=== PATIENT | male | born 1955 | race African-American/Black ===

== ENCOUNTER 2021-03-12 12:23 | Inpatient (IN) | payer OTHER, BC ==
--- NOTE | 2021-03-12 13:47 | RAD REPORT ---
EXAM DESCRIPTION: RAD - Chest Single View - 03/12/2021 1:29 pm CLINICAL HISTORY: CHEST PAIN Chest pain. COMPARISON: No comparisons FINDINGS: Portable technique limits examination quality. Small calcified granuloma seen in the right lung base. The lungs are otherwise clear. The heart is no rmal in size. No displaced fractures. IMPRESSION: No acute intrathoracic process suspected.
[2021-03-12] MEDS ORDERED: MORPHINE 4 MG/ML SYR ONE ×2 (14:58→20:30)
[2021-03-12] MEDS ORDERED: ONDANSETRON 4 MG/2 ML VIAL ONE ×2 (14:58→20:30)
[2021-03-12 15:40] LABS: Absolute Lymphocytes (CBC) 1.2 K/uL (0.7-4.9); Basophils % 0.6 % (0-1.3); Hematocrit 40.5 % (39.6-49.0); Lymphocytes % 10.7 % (15.3-44.8); MPV 8.2 fL (7.6-11.3); RBC Red Blood Cell Count 4.29 M/uL (4.33-5.43)
[2021-03-12 16:10] LABS: Albumin 4.3 g/dL (3.4-5.0); Bilirubin Direct 0.2 mg/dL (0-0.2); Bilirubin Total 0.7 mg/dL (0.2-1.0); Protein, Total 7.8 g/dL (6.4-8.2)
[2021-03-12 16:12] LABS: Troponin (Emerg Dept Use Only) 21.1 ng/mL (0.0-0.045)
--- NOTE | 2021-03-12 16:35 | ER ---
Nurse's Notes [facility] Name: Kam Shah Age: 65 yrs Sex: Male : 1955 Arrival Date: 03/12/2021 Time: 12:28 Bed 16 Private MD: Diagnosis: Non-ST elevation (NSTEMI) myocardial infarction Presentation: 03/12 12:28 Chief complaint: Patient states: Pain that began from L flank that radiates to L axilla ss and across chest that began yesterday. IS described as sharp, continuous. Coronavirus screen: Client denies travel out of the [place] in the last 14 days. Ebola Screen: Patient denies exposure to infectious person. Patient denies travel to an Ebola-affected area in the 21 days before illness onset. Initial Sepsis Screen: Does the patient meet any 2 criteria? No. Patient's initial sepsis screen is negative. Does the patient have a suspected source of infection? No. Patient's initial sepsis screen is negative. Risk Assessment: Do you want to hurt yourself or someone else? Patient reports no desire to harm self or others. Onset of symptoms was March 11, 2021. 12:28 Acuity: JORDYN 2 ss 12:28 Method Of Arrival: Ambulatory ss Historical: - Allergies: 12:41 No Known Allergies; ss - PMHx: 12:41 High Cholesterol; ss - PSHx: 12:41 Appendectomy; R knee; ss - Immunization history:: Adult Immunizations up to date. - Social history:: Smoking status: Patient denies any tobacco usage or history of. - Family history:: not pertinent. - Hospitalizations: : No recent hospitalization is reported. Screenin:00 Abuse screen: Denies threats or abuse. Nutritional screening: No deficits noted. vg1 Tuberculosis screening: No symptoms or risk factors identified. Fall Risk No fall in past 12 months (0 pts). No secondary diagnosis (0 pts). IV access (20 points). Ambulatory Aid- None/Bed Rest/Nurse Assist (0 pts). Gait- Normal/Bed Rest/Wheelchair (0 pts) Mental Status- Oriented to own ability (0 pts). Total [place] Fall Scale indicates No Risk (0-24 pts). Assessment: 12:45 General: Appears in no apparent distress. comfortable, Behavior is calm, cooperative. vg1 Pain: Complains of pain in anterior aspect of left upper chest and left axillary Pt states radiates from left axillary to left side of chest Pain currently is 10 out of 10 on a pain scale. Pain began last night. Neuro: Level of Consciousness is awake, alert, obeys commands, Oriented to person, place, time, situation. Cardiovascular: Patient's skin is warm and dry. Respiratory: Airway is patent Respiratory effort is even, unlabored, Breath sounds are clear bilaterally. Denies cough, shortness of breath. GI: Reports nausea. : No signs and/or symptoms were reported regarding the genitourinary system. EENT: No signs and/or symptoms were reported regarding the EENT system. Derm: Skin is intact, is healthy with good turgor. Musculoskeletal: Circulation, motion, and sensation intact. 14:10 Reassessment: Lab called to assist with blood draw. vg1 14:32 Reassessment: Patient appears in no apparent distress at this time. No changes from vg1 previously documented assessment. Patient and/or family updated on plan of care and expected duration. Pain level reassessed. Patient is alert, oriented x 3, equal unlabored respirations, skin warm/dry/pink. Patient rated pain 10/10, notified provider. 14:42 Reassessment: Received VO from SANCHO Lombardi to administer Morphine 4 mg IVP x1 and Zofran vg1 4mg IVP x1. 15:00 Reassessment: Patient appears in no apparent distress at this time. Patient and/or vg1 family updated on plan of care and expected duration. Pain level reassessed. Patient is alert, oriented x 3, equal unlabored respirations, skin warm/dry/pink. 16:14 Reassessment: Received VO from Dr Espinoza to administer aspirin 324 mg PO x1. vg1 18:10 Reassessment: Patient appears in no apparent distress at this time. No changes from vg1 previously documented assessment. Patient and/or family updated on plan of care and expected duration. Pain level reassessed. Patient is alert, oriented x 3, equal unlabored respirations, skin warm/dry/pink. Vital Signs: 12:28 BP 137 / 94; Pulse 92; Resp 16; Temp 97.2(TE); Pulse Ox 97% on R/A; Weight 85.28 kg; ss Height 5 ft. 10 in. (177.80 cm); Pain 10/10; 13:01 BP 153 / 96; Pulse 72; Resp 20; Pulse Ox 99% on R/A; vg1 14:32 BP 149 / 98; Pulse 66; Resp 16; Pulse Ox 100% ; vg1 15:30 BP 135 / 87; Pulse 69; Resp 16; Pulse Ox 100% on R/A; vg1 16:00 BP 147 / 94; Pulse 66; Resp 16; Pulse Ox 98% on R/A; vg1 16:24 Weight 82.9 kg; vg1 16:30 BP 144 / 94; Pulse 72; Resp 16; Pulse Ox 99% on R/A; vg1 17:30 BP 156 / 97; Pulse 75; Resp 16; Pulse Ox 99% on R/A; vg1 18:10 BP 139 / 98; Pulse 70; Resp 14; Pulse Ox 98% on R/A; vg1 16:24 Body Mass Index 26.22 (82.90 kg, 177.80 cm) vg1 ED Course: 12:28 Patient arrived in ED. ss 12:41 Triage completed. ss 12:41 Arm band placed on right wrist. ss 12:43 Jimenez Espinoza MD is Attending Physician. rn 12:45 Lexii Anders RN is Primary Nurse. vg1 13:01 Patient has correct armband on for positive identification. Bed in low position. Call vg1 light in reach. Side rails up X 1. Adult w/ patient. 13:01 surveillance monitor on. Pulse ox on. NIBP on. vg1 13:01 Patient maintains SpO2 saturation greater than 95% on room air. vg1 13:19 Missed attempt(s): 22 gauge in left antecubital area. vg1 13:29 XRAY Chest (1 view) In Process Unspecified. EDMS 14:10 Inserted saline lock: 22 gauge in right wrist, using aseptic technique. Blood collected.ss 15:25 Initial lab(s) drawn, by tx, sent to lab. Inserted saline lock: 22 gauge in left vg1 antecubital area, using aseptic technique. ,using aseptic technique. completed by Dr Espinoza via . 16:34 Carmine Mccoy MD is Hospitalizing Provider. rn 19:26 Primary Nurse role handed off by Lexii Anders RN [email or web address] 19:40 Lexii Anders RN is Primary Nurse. vg1 20:52 No provider procedures requiring assistance completed. Patient admitted, IV remains in vg1 place. Administered Medications: 14:50 Drug: Zofran (Ondansetron) 4 mg Route: IVP; Site: right wrist; vg1 16:16 Follow up: Response: No adverse reaction; Nausea is decreased vg1 14:51 Drug: morphine 4 mg Route: IVP; Site: right wrist; vg1 16:16 Follow up: Response: No adverse reaction; Pain is decreased vg1 16:47 Drug: Heparin (IA-Bolus No thrombolytic) - HEParin 60 units/kg {Co-Signature: tr6 vg1 (Nohemi Gonsalves RN).} Route: IVP; Site: left antecubital; 18:07 Follow up: Response: No adverse reaction vg1 16:48 Drug: Heparin ([place] Drip) 12 units/kg/hr - (HEParin 59242 units, D5W 500 ml) vg1 {Co-Signature: tr6 (Nohemi Gonsalves RN).} Route: IV; Rate: calculated rate; Site: left antecubital; 20:56 Follow up: IV Status: Infusion continued upon admission vg1 16:48 Drug: Aspirin Chewable Tablet 324 mg Route: PO; vg1 18:07 Follow up: Response: No adverse reaction vg1 16:48 Drug: Metoprolol TARTRATE 50 mg Route: PO; vg1 17:30 Follow up: BP 156 / 97; Pulse 75 bpm; Resp 16 bpm; Pulse Ox 99% RA vg1 17:23 Drug: Atorvastatin 40 mg Route: PO; vg1 18:08 Follow up: Response: No adverse reaction vg1 18:20 Drug: Nitro-Bid Ointment 2 % 1 inches Route: Transdermal; Site: anterior chest wall; vg1 20:56 Follow up: Response: No adverse reaction vg1 Outcome: 16:34 Decision to Hospitalize by Provider. rn 20:52 Admitted to ICU accompanied by nurse, via wheelchair, with chart, Report called to 1 KATHRYN Sparrow 20:52 Condition: stable 20:52 Instructed on the need for admit. 20:56 Patient left the ED. vg1 Signatures: Dispatcher [employer] EDJimenez Whalen MD MD rn Smirch, Shelby, RN RN Ashu Toro [facility] Lexii Anders RN RN [facility] Nohemi Gonsalves RN tr6 Corrections: (The following items were deleted from the chart) 14:43 14:32 Reassessment: Patient appears in no apparent distress at this time. No changes vg1 from previously documented assessment. Patient and/or family updated on plan of care and expected duration. Pain level reassessed. Patient is alert, oriented x 3, equal unlabored respirations, skin warm/dry/pink. vg1
--- NOTE | 2021-03-12 16:35 | EDPHYS ---
Physician Documentation [facility] Name: Kam Shah Age: 65 yrs Sex: Male : 1955 Arrival Date: 03/12/2021 Time: 12:28 Bed 16 Private MD: ED Physician Jimenez Espinoza HPI: 03/12 13:24 This 65 yrs old Black Male presents to ER via Ambulatory with complaints of Chest Pain rn > 30 y/o. 13:24 The patient or guardian reports chest pain that is located primarily in the left rn lateral anterior chest. Onset: last night. The pain does not radiate. Associated signs and symptoms: Pertinent positives: nausea, Pertinent negatives: abdominal pain, cough, diaphoresis, lower extremity pain, lower extremity swelling, lightheadedness, shortness of breath, syncope, vomiting. The chest pain is described as aching. Duration: The patient or guardian reports a single episode, that is still ongoing. Modifying factors: The symptoms are alleviated by nothing. the symptoms are aggravated by nothing. Severity of pain: At its worst the pain was moderate in the emergency department the pain has improved. The patient has not experienced similar symptoms in the past. The patient has not recently seen a physician. Reports left sided chest pain that began last night, no trauma, no fever/cough, + nausea, no diaphoresis. No radiation. Unable to sleep well last night, tossed and turned. Not better today. . Historical: - Allergies: 12:41 No Known Allergies; ss - PMHx: 12:41 High Cholesterol; ss - PSHx: 12:41 Appendectomy; R knee; ss - Immunization history:: Adult Immunizations up to date. - Social history:: Smoking status: Patient denies any tobacco usage or history of. - Family history:: not pertinent. - Hospitalizations: : No recent hospitalization is reported. ROS: 13:24 Constitutional: Negative for fever, chills, and weight loss, Eyes: Negative for injury, rn pain, redness, and discharge, Neck: Negative for injury, pain, and swelling, Cardiovascular: Negative for palpitations, and edema, Respiratory: Negative for cough, wheezing, and pleuritic chest pain, Abdomen/GI: Negative for abdominal pain, nausea, vomiting, diarrhea, and constipation, Back: Negative for injury and pain, : Negative for injury, bleeding, discharge, and swelling, MS/Extremity: Negative for injury and deformity, Skin: Negative for injury, rash, and discoloration, Neuro: Negative for headache, weakness, numbness, tingling, and seizure. Exam: 13:24 Constitutional: This is a well developed, well nourished patient who is awake, alert, rn and in no acute distress. Head/Face: Normocephalic, atraumatic. Chest/axilla: Normal chest wall appearance and motion. Nontender with no deformity. No lesions are appreciated. Cardiovascular: Regular rate and rhythm. No pulse deficits. Respiratory: No increased work of breathing, no retractions or nasal flaring. Abdomen/GI: soft, non-tender Skin: Warm, dry with normal turgor. Normal color with no rashes, no lesions, and no evidence of cellulitis. MS/ Extremity: Pulses equal, no cyanosis. Neurovascular intact. Full, normal range of motion. Equal circumference. Neuro: Awake and alert, GCS 15, oriented to person, place, time, and situation. Motor strength 5/5 in all extremities. Sensory grossly intact. 13:28 ECG was reviewed by the Attending Physician. rn Vital Signs: 12:28 BP 137 / 94; Pulse 92; Resp 16; Temp 97.2(TE); Pulse Ox 97% on R/A; Weight 85.28 kg; ss Height 5 ft. 10 in. (177.80 cm); Pain 10/10; 13:01 BP 153 / 96; Pulse 72; Resp 20; Pulse Ox 99% on R/A; vg1 14:32 BP 149 / 98; Pulse 66; Resp 16; Pulse Ox 100% ; vg1 15:30 BP 135 / 87; Pulse 69; Resp 16; Pulse Ox 100% on R/A; vg1 16:00 BP 147 / 94; Pulse 66; Resp 16; Pulse Ox 98% on R/A; vg1 16:24 Weight 82.9 kg; vg1 16:30 BP 144 / 94; Pulse 72; Resp 16; Pulse Ox 99% on R/A; vg1 17:30 BP 156 / 97; Pulse 75; Resp 16; Pulse Ox 99% on R/A; vg1 18:10 BP 139 / 98; Pulse 70; Resp 14; Pulse Ox 98% on R/A; vg1 16:24 Body Mass Index 26.22 (82.90 kg, 177.80 cm) vg1 Procedures: 15:24 Peripheral line: by aseptic technique a peripheral line was placed in the left rn antecubital vein, using ultrasound guidance, single stick, cleansed skin, 22g. . MDM: 12:43 Patient medically screened. rn 15:24 ED course: Lab and nursing unable to get blood draw. I placed peripheral IV using rn ultrasound guidance, good flow and flush, blood sent. . 16: ED course: Trop 21, pain nearly resolved, AMI that began last night, contacting garnetter, heparin ordered. . ED course: NPO for atleast 4 hours. 16:27 ED course: Consulted with Dr. Mccoy, plans to take to cath tomorrow AM, asks for rn heparin, aspirin, beta lincoln, and statin. Does not want plavix or lovenox. . 16:27 Differential diagnosis: acute myocardial infarction, coronary artery disease pleurisy, rn pneumonia, pneumothorax, pulmonary embolus, stable angina, unstable angina. The patient was given aspirin in the Emergency Department. Data reviewed: vital signs, nurses notes, lab test result(s), EKG, radiologic studies, plain films, and as a result, I will admit patient. Counseling: I had a detailed discussion with the patient and/or guardian regarding: the historical points, exam findings, and any diagnostic results supporting the discharge/admit diagnosis, lab results, radiology results, the need for further work-up and treatment in the hospital. Response to treatment: the patient's symptoms have markedly improved after treatment, and as a result, I will admit patient. Admission orders: after a detailed discussion of the patient's condition and case, the admit orders are written by me. 03/12 12:58 Order name: Basic Metabolic Panel; Complete Time: 16: rn 03/12 12:58 Order name: CBC with Diff; Complete Time: 15:55 rn 03/12 12:58 Order name: LFT's; Complete Time: 16: rn 03/12 12:58 Order name: NT PRO-BNP; Complete Time: 16: rn 03/12 12:58 Order name: Troponin (emerg Dept Use Only); Complete Time: 16:22 rn 03/12 12:58 Order name: Lipase; Complete Time: 16: rn 03/12 12:58 Order name: XRAY Chest (1 view); Complete Time: 14:01 rn 03/12 12:59 Order name: D-Dimer rn 03/12 13:00 Order name: D-Dimer; Complete Time: 16:12 EDMS 03/12 16:02 Order name: CT Chest For PE Angio rn 03/12 18:21 Order name: COVID-19 : Document "Date of Symptom Onset" if Symptomatic. vg1 03/12 18:34 Order name: CORONAVIRUS EDIL 03/12 19:13 Order name: SARS-COV-2 RT PCR EDIL 03/12 12:58 Order name: EKG; Complete Time: 12:59 rn 03/12 12:58 Order name: Cardiac monitoring; Complete Time: 13:02 rn 03/12 12:58 Order name: EKG - Nurse/Tech; Complete Time: 13:02 rn 03/12 12:58 Order name: IV Saline Lock; Complete Time: 14:37 rn 03/12 12:58 Order name: Labs collected and sent; Complete Time: 15:25 rn 03/12 12:58 Order name: O2 Per Protocol; Complete Time: 13:02 rn 03/12 12:58 Order name: O2 Sat Monitoring; Complete Time: 13:02 rn 03/12 17:48 Order name: CT EDMS EC:28 Rate is 78 beats/min. Rhythm is regular. QRS [place] is Normal. DC interval is normal. QRS rn interval is normal. QT interval is normal. No Q waves. T waves are Normal. No ST changes noted. Clinical impression: NSR w/ Non-specific ST/T Changes. Interpreted by me. Reviewed by me. Administered Medications: 14:50 Drug: Zofran (Ondansetron) 4 mg Route: IVP; Site: right wrist; vg1 16:16 Follow up: Response: No adverse reaction; Nausea is decreased vg1 14:51 Drug: morphine 4 mg Route: IVP; Site: right wrist; vg1 16:16 Follow up: Response: No adverse reaction; Pain is decreased vg1 16:47 Drug: Heparin ([place]-Bolus No thrombolytic) - HEParin 60 units/kg {Co-Signature: tr6 vg1 (Nohemi Gonsalves RN).} Route: IVP; Site: left antecubital; 18:07 Follow up: Response: No adverse reaction vg1 16:48 Drug: Heparin ([place] Drip) 12 units/kg/hr - (HEParin 70007 units, D5W 500 ml) vg1 {Co-Signature: tr6 (Nohemi Gonsalves RN).} Route: IV; Rate: calculated rate; Site: left antecubital; 20:56 Follow up: IV Status: Infusion continued upon admission vg1 16:48 Drug: Aspirin Chewable Tablet 324 mg Route: PO; vg1 18:07 Follow up: Response: No adverse reaction vg1 16:48 Drug: Metoprolol TARTRATE 50 mg Route: PO; vg1 17:30 Follow up: BP 156 / 97; Pulse 75 bpm; Resp 16 bpm; Pulse Ox 99% RA vg1 17:23 Drug: Atorvastatin 40 mg Route: PO; vg1 18:08 Follow up: Response: No adverse reaction vg1 18:20 Drug: Nitro-Bid Ointment 2 % 1 inches Route: Transdermal; Site: anterior chest wall; vg1 20:56 Follow up: Response: No adverse reaction vg1 Disposition: 16:44 Critical Care:. rn Disposition: 03/12/21 16:34 Hospitalization ordered by Carmine Mccoy for Inpatient Admission. Preliminary diagnosis is Non-ST elevation (NSTEMI) myocardial infarction. - Bed requested for Intensive Care Unit. - Status is Inpatient Admission. vg1 - Condition is Stable. - Problem is new. - Symptoms have improved. Critical care time excluding procedures: 16:44 Critical care time: Bedside Care: 25 minutes, Consultation: 5 minutes. Total time: 30 rn minutes Signatures: Dispatcher [employer] EDIL Jimenez Espinoza MD MD rn Smirch, Shelby, RN RN Karla Anders RN RN Lexii Anders RN RN vg1 Nohemi Gonsalves RN tr6 Corrections: (The following items were deleted from the chart) 19:52 16:34 Hospitalization Ordered by Carmine Mccoy MD for Inpatient Admission. Preliminary cg diagnosis is Non-ST elevation (NSTEMI) myocardial infarction. Bed requested for Intensive Care Unit. Status is Inpatient Admission. Condition is Stable. Problem is new. Symptoms have improved. rn 20:56 19:52 03/12/2021 16:34 Hospitalization Ordered by Carmine Mccoy MD for Inpatient vg1 Admission. Preliminary diagnosis is Non-ST elevation (NSTEMI) myocardial infarction. Bed requested for Intensive Care Unit. Status is Inpatient Admission. Condition is Stable. Problem is new. Symptoms have improved. cg
[2021-03-12] MEDS: METOPROLOL TAR 50 MG TAB PO SCH (16:48)
[2021-03-12] MEDS ORDERED: METOPROLOL TAR 50 MG TAB ONE (16:51)
[2021-03-12] MEDS ORDERED: HEPARIN/D5W 25,000 UNIT/500 ML BAG IV ONE (16:51)
[2021-03-12] MEDS ORDERED: ASPIRIN 81 MG CHEWABLE TABLET ONE (16:51)
[2021-03-12] MEDS ORDERED: HEPARIN 5000 UNIT/ML 1 ML VIAL ONE (16:51)
[2021-03-12] MEDS ORDERED: ATORVASTATIN 20 MG TAB ONE (17:37)
--- NOTE | 2021-03-12 17:48 | RAD REPORT ---
EXAM DESCRIPTION: CT - Chest For Pe Angio - 03/12/2021 5:09 pm CLINICAL HISTORY: Chest pain. CHEST PAIN COMPARISON: No comparisons TECHNIQUE: CT angiogram of the pulmonary arteries was performed with MIP. All CT scans are performed using dose optimization technique as appropriate and may include automated exposure control or mA/KV adjustment according to patient size. FINDINGS: No evidence of pulmonary thromboembolism. No acute aortic finding demonstrated. Mild linear subsegmental atelectasis is present in both posterior lung bases. No significant pericardial or pleural fluid. No concerning bony finding. IMPRESSION: No evidence of pulmonary thromboembolism. Mild linear subsegmental atelectasis in both posterior lung bases.
[2021-03-12] MEDS ORDERED: NITROGLYCERIN 1 GM PKT TD ONE (18:32)
[2021-03-12] MEDS ORDERED: NITROGLYCERIN 1 GM PKT TD SCH (19:25)
[2021-03-12] MEDS ORDERED: HEPARIN/D5W 25,000 UNIT/500 ML BAG IV SCH (19:25)
[2021-03-12] MEDS: MORPHINE 4 MG/ML SYR IV PRN (20:26)
[2021-03-12] MEDS: ONDANSETRON 4 MG/2 ML VIAL IV PRN (20:26)
[2021-03-12 20:47] VITALS: BMI 26.1
[2021-03-12] MEDS: ATORVASTATIN 80 MG TAB PO SCH (22:16)
[2021-03-12] MEDS ORDERED: ATORVASTATIN 80 MG TAB ONE (22:19)
[2021-03-13] MEDS: ONDANSETRON 4 MG/2 ML VIAL IV PRN ×2 (01:15→10:08)
[2021-03-13] MEDS: MORPHINE 4 MG/ML SYR IV PRN ×3 (01:15→10:08)
[2021-03-13] MEDS ORDERED: MORPHINE 4 MG/ML SYR ONE ×3 (01:19→10:23)
[2021-03-13] MEDS ORDERED: ONDANSETRON 4 MG/2 ML VIAL ONE ×2 (01:19→10:24)
--- NOTE | 2021-03-13 02:05 | HP ---
Date of Admission: 03/12/2021 Chief Complaint: Chest pain. History Of Present Illness: This is a 65-year-old pleasant male patient who was doing fine in his normal usual state of health. For last 2 days, he has not felt good at all. He describes as having pain in the left lower lateral chest area, and over period of last 2 days, this pain radiated up to left axilla. Pain has been intermittent. He has had some associated nausea and feeling tired. Today, he did not feel good at all, so he was brought into emergency room. After he was evaluated in the ER, he was admitted to the hospital with non-STEMI. The patient received aspirin, IV heparin, beta lincoln in the emergency room. When I saw him, he was feeling better. His was present with him at bedside. Allergies: NO KNOWN ALLERGIES. Medications: Atorvastatin 20 mg daily and eyedrops Combigan and latanoprost. Review of Systems: Cardiovascular: As mentioned above. All other systems reviewed and negative. Past Medical History: Significant for glaucoma, impaired fasting glucose, hyperlipidemia, benign prostatic hypertrophy. Past Surgical History: Appendectomy and knee surgery which was arthroscopic knee surgery on the right knee due to arthritis. Family History: Father , had prostate cancer, hypertension, hyperlipidemia. Mother , had coronary artery disease, hypertension, hyperlipidemia, and stroke. Social History: Negative for smoking and alcohol use. Physical Examination: Vital Signs: Temperature 98.3, pulse 78, respiratory rate 14, blood pressure 119/82, oxygen saturation 98%. Height 5 feet, 10 inches, weight 182 pounds. General: Awake, alert, oriented, not in distress. HEENT: Head atraumatic, normocephalic. Conjunctivae nonerythematous. Sclerae white. Mouth, no thrush or edema noted. Ears/Nose, no mass, lesion, discharge noted. Neck: Supple. No JVD, lymph nodes, bruit, thyromegaly noted. Lungs: Bilateral good equal air entry. Clear to auscultation. No rhonchi. No rales. Heart: Normal heart sounds, no murmur or gallop. Abdomen: Soft, bowel sounds normal. No guarding, rigidity, tenderness, mass, hepatosplenomegaly, distention, or bruit noted. Extremities: No leg edema. No calf tenderness. Skin: No rash, ulcer, cellulitis. Lymphatics: No lymph node enlargement in neck, supraclavicular, infraclavicular region. Neuro: No focal neurological deficit. Chest: Unremarkable. External Genitalia: Deferred. Rectal: Deferred. Laboratory Data: White count is 10.8, hemoglobin 13.8, platelets 225. Sodium 139, potassium 4, chloride 103, bicarb 33, BUN 11, creatinine 1.04, glucose 102. Liver function tests unremarkable. AST 194, ALT 35, alkaline phosphatase 86. Troponin 21.1 on the first set, second set 35.5. Lipase 137. COVID-19 test negative. Chest x-ray; no acute cardiopulmonary changes. CT scan of the chest per PE protocol was negative for pulmonary embolism. EKG; normal sinus rhythm, right bundle branch block. Impression: 1. [id number] myocardial infarction. 2. Hyperlipidemia. 3. Impaired fasting glucose. 4. Benign prostatic hypertrophy. 5. Glaucoma. Plan: Admit patient to hospital for further evaluation and management of this problem. The patient is appropriate for inpatient and is expected to spend 2 midnights in hospital. We will continue Lipitor, but we will give him a high dose statin therapy instead of 20 mg daily dose that he normally takes at home. I will go ahead and give him 80 mg daily. We will go ahead and follow up with consumer affairs manager, Dr. Mccoy. Details were discussed with Dr. Mccoy today. He is planning to do cardiac cath on patient tomorrow and details of plan of treatment discussed with the patient. VIDAL/MODL Voice ID: [id number] [facility]
[2021-03-13 05:40] LABS: Absolute Lymphocytes (CBC) 1.3 K/uL (0.7-4.9); Basophils % 0.4 % (0-1.3); Hematocrit 43.6 % (39.6-49.0); Lymphocytes % 10.6 % (15.3-44.8); RBC Red Blood Cell Count 4.64 M/uL (4.33-5.43)
[2021-03-13] MEDS: ASPIRIN EC 81 MG TAB PO SCH ×2 (05:49→08:12)
[2021-03-13] MEDS ORDERED: ASPIRIN 325 MG TAB ONE ×2 (05:57→12:28)
[2021-03-13] MEDS ORDERED: ASPIRIN EC 81 MG TAB PO ONE (06:02)
[2021-03-13 06:10] LABS: Potassium 3.9 mmol/L (3.5-5.1)
[2021-03-13] MEDS ORDERED: D5 0.9 NS 1,000 ML IV SCH (08:00)
[2021-03-13] MEDS: METOPROLOL TAR 50 MG TAB PO SCH ×2 (08:05→20:17)
[2021-03-13] MEDS ORDERED: METOPROLOL TAR 50 MG TAB ONE ×2 (08:21→20:16)
[2021-03-13] MEDS ORDERED: D5 0.9 NS 1,000 ML IV ONE (09:31)
[2021-03-13] MEDS ORDERED: HEPA 1000U/500MLS 1,000 UNIT/500 ML BAG IV ONE (10:42)
[2021-03-13] MEDS ORDERED: MIDAZOLAM HCL 2 MG/2 ML INJ ONE (10:43)
[2021-03-13] MEDS ORDERED: ATROPINE SULF 1 MG/10 ML SYR IV ONE (10:43)
[2021-03-13] MEDS ORDERED: FENTANYL CITR 100 MCG/2 ML ONE (10:43)
[2021-03-13] MEDS ORDERED: NITROGLYCERIN 100 MCG/ML SYR (for cath lab use only) IV ONE (10:43)
[2021-03-13] MEDS ORDERED: NITROGLYCERIN/D5W 25 MG/250 ML BTL IV ONE (10:44)
[2021-03-13] MEDS ORDERED: NA CHLORIDE 0.9% 50 ML ONE (10:44)
[2021-03-13] MEDS ORDERED: NA CHLORIDE 0.9% 500 ML ONE (10:52)
[2021-03-13] MEDS ORDERED: PNEUMOCOCCAL VACCINE 0.5 ML IMVAC ONE (12:00)
[2021-03-13] MEDS ORDERED: PRASUGREL (EFFIENT) 10 MG TAB ONE (12:28)
[2021-03-13] MEDS ORDERED: ZOLPIDEM TARTRATE 10 MG TABLET PO PRN (13:11)
--- NOTE | 2021-03-13 16:08 | EKG ---
Test Date: 2021-03-13 Test Time: 10:35:46 Quality Assurance Monitor Final: ARNIE MEASUREMENT RESULTS: Intervals: Rate: 80 NH: 146 QRSD: 142 QT: 388 QTc: 447 [place]: P: 61 NH: 146 QRS: 253 T: 15 INTERPRETIVE STATEMENTS: Sinus rhythm with occasional premature ventricular complexes Right bundle branch block Possible Lateral infarct, age undetermined Abnormal ECG Compared to ECG 03/12/2021 12:32:44 Ventricular premature complex(es) now present Myocardial infarct finding now present Electronically Signed On 03-13-21 16:06:49 CDT by Carmine Mccoy
--- NOTE | 2021-03-13 16:12 | EKG ---
Test Date: 2021-03-12 Test Time: 12:32:44 Plant Scientist: MKIEY MEASUREMENT RESULTS: Intervals: Rate: 78 WA: 144 QRSD: 138 QT: 412 QTc: 469 [place]: P: 63 WA: 144 QRS: 267 T: 18 INTERPRETIVE STATEMENTS: Normal sinus rhythm Right bundle branch block Abnormal ECG No previous ECG available for comparison Electronically Signed On 03-13-21 16:07:18 CDT by Carmine Mccoy
--- NOTE | 2021-03-13 20:02 | PN ---
Date of Progress Note: 03/13/2021 Subjective: The patient was seen this morning for followup. No new complaints or problems reported by the patient, except intermittent chest pain which is overall better compared to yesterday. He did require morphine use overnight. Objective: Vital Signs: Reviewed. HEENT: Unremarkable. Lungs: Clear to auscultation. Heart: Sounds normal. Abdomen: Soft. Bowel sounds normal. No guarding, rigidity, tenderness, or distention. Extremities: No leg edema. Laboratory Data: White count 12.7, hemoglobin 14.7, platelets 194. Sodium 140, potassium 3.9, chlor yuly 103, bicarb 31, BUN 12, creatinine 1.07, glucose 103. Triglyceride 48, total cholesterol 151, LD L 80, HDL 61. Impression: 1.Non-ST segment elevation myocardial infarction. 2.Coronary artery disease, status post stent placement today. 3.Hyperlipidemia. 4.Hypertension. Plan: The patient's blood pressure is well controlled today. We will continue metoprolol. After I saw him this morning, the patient had a cardiac cath done by Dr. Mccoy and he did call and informed me about cardiac cath findings and he did place stent in his LAD. We will keep him in the hospital overnight today and plan to discharge him to go home tomorrow if his condition is stable. Meanwhile, we will continue aggressive statin therapy with atorvastatin 80 mg daily, continue anti-platelet therapy per order and beta-lincoln which will be metoprolol. I will see him tomorrow f or followup. VIDAL/MODL Voice ID: [id number] Report ID: [id number]
[2021-03-13] MEDS: HOME MED 1 EA UNK (Dorzolamide Hcl/Timolol Maleat [Dorzolamide-Timolol Eye Drops] 10 ML Dr OPTH SCH (20:10)
[2021-03-13] MEDS: HOME MED 1 EA UNK (Latanoprost/Pf [Latanoprost 0.005% Eye Drop] 7.5 ML Drops) OPTH SCH (20:12)
[2021-03-13] MEDS: ATORVASTATIN 80 MG TAB PO SCH (20:18)
[2021-03-13] MEDS ORDERED: ATORVASTATIN 80 MG TAB ONE (20:21)
[2021-03-14 06:41] LABS: Potassium 3.9 mmol/L (3.5-5.1)
[2021-03-14] MEDS ORDERED: ASPIRIN EC 81 MG TAB PO ONE (07:39)
[2021-03-14 07:40] LABS: Basophils % 0.2 % (0-1.3); Hematocrit 38.9 % (39.6-49.0); Lymphocytes % 7.3 % (15.3-44.8); MPV 8.5 fL (7.6-11.3); RBC Red Blood Cell Count 4.08 M/uL (4.33-5.43)
[2021-03-14] MEDS ORDERED: CLOPIDOGREL 75 MG TABLET ONE (07:40)
[2021-03-14] MEDS ORDERED: METOPROLOL TAR 25 MG TAB ONE (07:40)
[2021-03-14] MEDS ORDERED: NA CHLORIDE 0.9% 1,000 ML ONE (07:40)
[2021-03-14] MEDS: ASPIRIN EC 81 MG TAB PO SCH (08:10)
[2021-03-14] MEDS: METOPROLOL XL 25 MG TAB PO SCH (08:10)
[2021-03-14] MEDS: NA CHLORIDE 0.9% 1,000 ML IV SCH ×2 (08:10→16:13)
[2021-03-14] MEDS: CLOPIDOGREL 75 MG TABLET PO SCH (08:11)
--- NOTE | 2021-03-14 08:28 | ECHO ---
HEIGHT: 5 ft 10 in WEIGHT: 182 lb 0 oz DATE OF STUDY: 03/13/[address]: Constantin Pearl MD 2-DIMENSIONAL: YES M.MODE: YES DOPPLER: YES COLOR FLOW: YES TDS: NO PORTABLE: YES DEFINITY: NO BUBBLE STUDY: NO DIAGNOSIS: NSTEMI CARDIAC HISTORY: CATHERIZATION: NO SURGERY: NO PROSTHETIC VALVE: NO PACEMAKER: NO MEASUREMENTS (cm) DIASTOLIC (NORMALS) SYSTOLIC (NORMALS) IVSd 0.9 (0.6-1.2) LA Diam 2.7 (1.9-4.0) LVEF 61% LVIDd 5.0 (3.5-5.7) LVIDs 3.3 (2.0-3.5) %FS 33% LVPWd 0.9 (0.6-1.2) Ao Diam 2.7 (2.0-3.7) 2 DIMENSIONAL ASSESSMENT: RIGHT ATRIUM: NORMAL LEFT ATRIUM: NORMAL RIGHT VENTRICLE: NORMAL LEFT VENTRICLE: NORMAL TRICUSPID VALVE: NORMAL MITRAL VALVE: NORMAL PULMONIC VALVE: NORMAL AORTIC VALVE: NORMAL PERICARDIAL EFFUSION: NONE AORTIC ROOT: NORMAL LEFT VENTRICULAR WALL MOTION: NORMAL DOPPLER/COLOR FLOW: NORMAL COMMENTS: NORMAL 2D ECHOCARDIOGRAM WITH DOPPLER. NO WALL MOTION ABNORMALITY. NO EFFUSION. TECHNOLOGIST: Dwayne PARSONS
[2021-03-14] MEDS: HOME MED 1 EA UNK (Dorzolamide Hcl/Timolol Maleat [Dorzolamide-Timolol Eye Drops] 10 ML Dr OPTH SCH ×2 (09:00→20:21)
--- NOTE | 2021-03-14 11:55 | OP ---
Date of Procedure: 03/13/2021 Surgeon: Carmine Mccoy MD Procedures: Left heart catheterization, selective coronary arteriogram, angioplasty, and stent of th e mid and distal LAD. Indication: Non-ST elevation myocardial infarction. Procedure In Detail: Mr. Shah is a 65-year-old, who was admitted with non-STEMI on 03/12/2021, b rought to the label stitcher today 03/13/2021, prepped and draped in the routine sterile fashion. Given Ve rsed for sedation. A 6-Azeri sheath introduced in the right common femoral artery after 10 mL of Xy locaine using the Seldinger technique. JR4 and JL4 catheter were used to do the diagnostic catheteri zation. He was found to have mild disease in the RCA with some diffuse plaquing, but no focal stenos is. The circumflex itself was normal. He had a subtotal OM1 with LEONEL-1 flow. He had a 99% mid umu nosis in the LAD and 99% distal stenosis in the LAD with LEONEL-2 flow. We decided to intervene. An X B LAD catheter was used to cannulate the left main with side holes. A Ward wire was used to cross the lesion successfully. We pre-dilated with a 2.5 x 15 mm Emerge balloon in the mid and distal LAD at maximum 11 atmospheres for 30 seconds and multiple dilatations. Following that, we initially put a 2.5 x 16 stent in the distal LAD that was 0% residual. We required two Synergy 20 mm long 2.5 wide stents that were overlapped in the mid to distal LAD with 0% residual. The patient tolerated the pr ocedure well. There were no complications. Estimated Blood Loss: 5 mL. Anesthesia: Total conscious sedation was 60 minutes. The patient received aspirin, Effient, and Angiomax during the procedure. Plan: The plan is to do the OM lesion in the next week or 2, we will stage that. For now, he will r emain in the hospital overnight and he will be going home tomorrow. The case was discussed with Dr. Pearl and the patient's family. JAROCHO/BRENDANL Voice ID: [id number] Report ID: [id number]
--- NOTE | 2021-03-14 12:09 | PN ---
Date of Progress Note: 03/14/2021 Subjective: Mr. Shah underwent a successful angioplasty and stent of the mid and distal LAD afte r a non-STEMI. Overnight, he did well. Objective: Vital Signs: Stable, afebrile, sinus rhythm. Chest: Clear. Extremities: Groin is intact without any hematoma. Assessment And Plan: He should be going home today on aspirin, Plavix, beta-lincoln, and statin. I will stage his OM lesion to be done in the next week or 2. JAROCHO/ORI Voice ID: [id number] Report ID: [id number]
--- NOTE | 2021-03-14 12:32 | CON ---
Date of Consultation: 03/12/2021 Reason For Consultation: Non-ST elevation myocardial infarction. History Of Present Illness: Mr. Shah is a 65-year-old black male with history of hypertension, d yslipidemia, came in with about 2 days worth of chest pain, was found to have some ischemic changes o n the EKG, troponin was greater than 20. Denied PND, orthopnea, pedal edema, palpitation, or syncope . Denied any nausea or vomiting or diaphoresis. Denied any fever or chills. Past Medical History: As stated above. Allergies: NONE. Review of Systems: Negative. Social History: Negative. Family History: Noncontributory. Medications: Listed by Dr. Pearl. Physical Examination: Vital Signs: Stable, afebrile. HEENT: Negative. Neck: Supple with no bruit. Chest: Clear to auscultation and percussion. Cardiac: Revealed a regular rhythm and rate. No murmurs, gallops, or rubs. Abdomen: Benign. Extremities: Revealed no clubbing, cyanosis, or edema. Diagnostic Data: As stated earlier. Impression And Plan: The patient with classic symptoms for coronary artery disease, positive troponi n, abnormal EKG. We will continue heparin, aspirin, statin, beta-blockers. Plan for the heart los terization on 03/13/2021 to define his coronary anatomy. Case was discussed with Dr. Pearl. JAROCHO/ORI Voice ID: [id number] Report ID: [id number]
[2021-03-14 15:21] LABS: Potassium 3.3 mmol/L (3.5-5.1)
[2021-03-14] MEDS ORDERED: POTASSIUM 25 MEQ EFFERV TAB PO ONE (16:00)
[2021-03-14] MEDS ORDERED: POTASSIUM 25 MEQ EFFERV TAB ONE (16:18)
[2021-03-14 20:06] LABS: Urine Appearance CLEAR (Clear); Urine Bilirubin NEGATIVE (Negative); Urine Blood TRACE (Negative); Urine Color YELLOW (Yellow); Urine Glucose NEGATIVE (Negative); Urine Protein NEGATIVE (Negative); Urine Urobilinogen 0.2 mg/dL (0.2-1.0)
[2021-03-14] MEDS: ATORVASTATIN 80 MG TAB PO SCH (20:20)
[2021-03-14] MEDS: HOME MED 1 EA UNK (Latanoprost/Pf [Latanoprost 0.005% Eye Drop] 7.5 ML Drops) OPTH SCH (20:22)
[2021-03-14 20:23] LABS: Urine Microscopic Reflex ORDER UMIC
[2021-03-14 21:34] LABS: Urine Bacteria <20 /HPF (NONE SEEN); Urine Mucus 1+ /HPF (NONE SEEN)
[2021-03-14 22:26] VITALS: O2SAT 95
--- NOTE | 2021-03-14 23:05 | PN ---
Date of Progress Note: 03/14/2021 Subjective: The patient was seen this morning for followup. No new complaints or problems reported. He was lying in bed in ICU. No vomiting. Objective: Vital Signs: Reviewed. HEENT: Unremarkable. Lungs: Clear to auscultation. Heart: Sounds normal. Abdomen: Soft. Bowel sounds normal. No guarding, rigidity, tenderness, or distention. Extremities: No leg edema. Right groin exam shows presence of dressing. No evidence of any hematom a. Laboratory Data: Reviewed. White count is slightly elevated around 12,000 to 13,000 and creatinine has gone up to 1.3. The patient came in with normal creatinine. Impression: 1.Acute kidney injury. 2.Fever. 3.Leukocytosis. 4.Non-ST segment elevation myocardial infarction. 5.Coronary artery disease. 6.Hyperlipidemia. 7.Hypertension. Plan: The patient was getting metoprolol 50 mg 2 times a day since admission and overnight his blood pressure was low with systolic blood pressure around 80 to 90 range and I have reduced the dose of m etoprolol to 25 mg once a day. We will continue Plavix, aspirin, and all the fluid was started at 12 5 cc/hour using normal saline and this afternoon, repeat chemistry was done. Creatinine did not impr ove, but did not show any worsening and got stabilized with creatinine of 1.3. He still has low-grad e fever. Urinalysis and urine culture were ordered. We will follow up on that result, and I will se e him tomorrow for followup. We will repeat blood work in the morning. Continue meanwhile IV fluid hydration and the patient is medically stable for transfer out of ICU to regular room. See copy of transfer order for details. VIDAL/MODL Voice ID: [id number] Report ID: [id number]
[2021-03-15] MEDS: NA CHLORIDE 0.9% 1,000 ML IV SCH (00:30)
[2021-03-15] MEDS ORDERED: NA CHLORIDE 0.9% 1,000 ML ONE (00:32)
[2021-03-15 07:14] LABS: Hematocrit 30.2 % (39.6-49.0); MPV 8.3 fL (7.6-11.3); RBC Red Blood Cell Count 3.19 M/uL (4.33-5.43)
[2021-03-15 07:29] LABS: Magnesium 2.1 mg/dL (1.8-2.4); Phosphorus 1.5 mg/dL (2.5-4.9); Potassium 3.7 mmol/L (3.5-5.1)
[2021-03-15] MEDS: HOME MED 1 EA UNK (Dorzolamide Hcl/Timolol Maleat [Dorzolamide-Timolol Eye Drops] 10 ML Dr OPTH SCH (09:00)
[2021-03-15] MEDS: METOPROLOL XL 25 MG TAB PO SCH (09:00)
[2021-03-15] MEDS: CLOPIDOGREL 75 MG TABLET PO SCH (09:06)
[2021-03-15] MEDS: ASPIRIN EC 81 MG TAB PO SCH (09:06)
[2021-03-15] MEDS ORDERED: METOPROLOL XL 50 MG TAB PO ONE (09:21)
[2021-03-15] MEDS ORDERED: ASPIRIN EC 81 MG TAB PO ONE (09:22)
[2021-03-15] MEDS ORDERED: CLOPIDOGREL 75 MG TABLET ONE (09:22)
[2021-03-15 09:28] VITALS: TEMP 98.6
[2021-03-15] MEDS ORDERED: POTASS/SODIUM PHOSPHATE 1 PKT POWD.PACK PO ONE (10:00)
[2021-03-15 11:59] VITALS: BP 110/78
--- NOTE | 2021-03-15 23:37 | DS ---
Date of Discharge: 03/15/2021 Disposition: Discharged to go home. Physical Examination: HEENT: Unremarkable. Lungs: Clear to auscultation. Heart: Sounds normal. Abdomen: Soft. Bowel sounds normal. No guarding, rigidity, tenderness, distention. Extremities: No leg edema. Right groin examination is unremarkable. No evidence of hematoma and carreno s dressing present from cardiac cath, which was done day before yesterday. Laboratory Data: Upon admission, white count 10.8, hemoglobin 13.8, platelets 225. Highest white co unt was yesterday 13.5, hemoglobin 12.9, platelets 189. This morning, white count 10.3, hemoglobin 1 0.4, platelets 156. Initial chemistry when he came into the hospital, sodium 139, potassium 4, chlor yuly 103, bicarb 33, BUN 11, creatinine 1.04, glucose 102. First troponin 21.1, second troponin 35.30 , and last troponin 57.40. Triglyceride 48, total cholesterol 151, LDL 80, HDL 61. His last food chemist ry today, sodium 143, potassium 3.7, chloride 112, bicarb 28, BUN 18, creatinine 1.10, glucose 88. P hosphorus 1.5, and this was corrected today for using Neutra-Phos. His highest creatinine was yester day 1.31 in the morning and 1.32 in the afternoon. Echocardiogram from 03/13/2021 shows normal eject ion fraction 61%, no wall motion abnormality, no pericardial effusion. Hospital Course: This is a 65-year-old very pleasant male patient, admitted to the hospital with com plaints of chest pain. Please see dictated H and P for more information. After the patient was eval uated in the emergency room, he was diagnosed as having non-STEMI. He was given aspirin, IV heparin was started, metoprolol, and high dose statin was started. The patient was admitted to the hospital and Cardiology consultation was obtained from Dr. Mccoy. Day after admission, the patient had a ca rdiac cath done by Dr. Mccoy and Dr. Mccoy placed 2 stent in mid LAD and distal LAD area. The pa tient also has a third area of coronary stenosis, which is at the origin of OM1 and Dr. Mccoy will make a decision about any need for further intervention on an elective outpatient basis. After the p rocedure, he was brought back to ICU. His chest pain has completely resolved after the procedure and has not had any recurrence. Yesterday, he had acute kidney injury with creatinine going up to 1.31 and IV fluid was started, normal saline at 125 cc/hour. Yesterday afternoon, creatinine got stabiliz ed at 1.32 and we continued IV fluid hydration until this morning. This morning, his creatinine is b ack to normal and the patient is medically stable for discharge. I have given him instruction and im portance of taking clopidogrel on a daily basis and not to miss that particular medication because of recent stent placement explained to him. Final Diagnoses: 1.Zje-KC-xybkkyuqc myocardial infarction. 2.Coronary artery disease. 3.Hyperlipidemia. 4.Hypertension. 5.Impaired fasting glucose. 6.Benign prostatic hypertrophy. 7.Glaucoma. 8.Acute kidney injury. 9.Anemia, unspecified. Discharge Medications And Instructions: 1.Continue prior eye drops that we were using prior to this admission. 2.Stop atorvastatin 20 mg dose. 3.Take dpho-tzv-afaqxkm aspirin 81 mg by mouth daily with food. 4.Take following new medication and prescription will be sent to [facility] from my office: a.Clopidogrel 75 mg p.o. daily. b.Metoprolol succinate 25 mg p.o. daily in morning. c.Atorvastatin 80 mg daily at bedtime. 5.Follow up at my office on 03/19/2021 or 03/20/2021. 6.Follow up with Dr. Mccoy week after next. 7.Avoid any strenuous activities for 2 weeks. VIDAL/MODL Voice ID: [id number] Report ID: [id number]
== END 2021-03-15 11:48 | disposition home or self-care (01) | DRG 247 ==
LOC: ER 12:23 → ERHOLD 16:37
PROVIDERS: ADMIT Internal Medicine; ATTEND Internal Medicine
PROC: 027035Z Dilation of Coronary Artery, One Artery with Two Drug-eluting Intraluminal Devices, Percutaneous Approach (ICD-10-PCS; principal; 2021-03-13)
PROC: 4A023N7 Measurement of Cardiac Sampling and Pressure, Left Heart, Percutaneous Approach (ICD-10-PCS; 2021-03-13)
PROC: B2111ZZ Fluoroscopy of Multiple Coronary Arteries using Low Osmolar Contrast (ICD-10-PCS; 2021-03-13)
DX: I21.4 Non-ST elevation (NSTEMI) myocardial infarction (principal); N17.9 Acute kidney failure, unspecified; E78.5 Hyperlipidemia, unspecified; D72.829 Elevated white blood cell count, unspecified; I25.10 Atherosclerotic heart disease of native coronary artery without angina pectoris; I10 Essential (primary) hypertension; D64.9 Anemia, unspecified; N40.0 Benign prostatic hyperplasia without lower urinary tract symptoms; H40.9 Unspecified glaucoma; R50.9 Fever, unspecified; R73.01 Impaired fasting glucose; Z90.49 Acquired absence of other specified parts of digestive tract; Z20.822 Contact with and (suspected) exposure to COVID-19
CPT/HCPCS: 36415; 71045; 71275; 80048; 80061; 80076; 81003; 81015; 83690; 83735; 83880; 84100; 84484; 85025; 85027; 85347; 85379; 85730; 87086; 87088; 93005; 93306; 93458; 99285; C1725; C1877; C1893; C9600; J0583; J1644; J2250; J2405; J3010; J7030; J7040; J7042; Q9967; U0003

== ENCOUNTER 2021-03-25 06:35 | Day surgery (SDC) | payer OTHER, BC ==
[2021-03-21 12:49] LABS: Protime INR 1.21
[2021-03-25 07:11] VITALS: TEMP 97
[2021-03-25] MEDS ORDERED: LIDOCAINE 1% 20 ML MDV ONE (07:11)
[2021-03-25] MEDS ORDERED: NA CHLORIDE 0.9% 500 ML ONE (07:11)
[2021-03-25] MEDS ORDERED: HEPA 1000U/500MLS 1,000 UNIT/500 ML BAG IV ONE (07:11)
[2021-03-25] MEDS ORDERED: MIDAZOLAM HCL 2 MG/2 ML INJ ONE (07:17)
[2021-03-25] MEDS ORDERED: FENTANYL CITR 100 MCG/2 ML ONE (07:17)
[2021-03-25] MEDS ORDERED: NITROGLYCERIN 100 MCG/ML SYR (for cath lab use only) IV ONE (07:18)
[2021-03-25] MEDS ORDERED: NA CHLORIDE 0.9% 50 ML ONE (07:18)
[2021-03-25] MEDS ORDERED: ATROPINE SULF 1 MG/10 ML SYR IV ONE (07:18)
[2021-03-25] MEDS ORDERED: NITROGLYCERIN/D5W 25 MG/250 ML BTL IV ONE (07:18)
[2021-03-25] MEDS ORDERED: CLOPIDOGREL 75 MG TABLET ONE (08:11)
[2021-03-25] MEDS ORDERED: ASPIRIN 325 MG TAB ONE (08:11)
--- NOTE | 2021-03-25 14:01 | OP ---
Date of Procedure: 03/25/2021 Surgeon: Carmine Mccoy MD Data Management Specialist: Reynaldo Boyer. Procedures Performed: Primary stent of the OM, selective coronary arteriogram of the left main. History Of Present Illness: Mr. Shah is a 65-year-old, had a recent SD March 13, 2021, underwent emergency angioplasty and stent of the completely occluded LAD in the mid vessel and distal vessel. He had at that time a 99% OM stenosis that we staged for today. 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 Given Versed and fentanyl for sedation. A 6-Icelandic sheath introduced in the right common fe moral artery successfully using the Seldinger technique and 10 mL of Xylocaine. Angiography there wa s normal. Angio-Seal was used to close the case. An XB3.5 guide with side hole was used to cannulat e the left main. Coronary injection of the left main revealed a normal left main, mild proximal LAD plaquing, patent recent stent in the mid and distal LAD. A 99% stenosis in the OM was noted. A Coug ar wire was used to cross the lesion. A 2.5 x 16 mm Synergy stent was placed in the lesion successfu lly with 0% residual. Intracoronary nitroglycerin 100 mcg was given prior to the final picture. The patient received Angiomax, Plavix, and aspirin during the procedure. There were no complications. Estimated Blood Loss: 5 mL. Final Diagnosis: Coronary artery disease, status post successful primary stent of the OM. We will continue medical therapy. I would like to increase his Lipitor to 80 mg daily. He can go ho me today at 4 p.m. Anesthesia: Total conscious sedation 45 minutes. NB/MODL Voice ID: [id number] Report ID: [id number]
[2021-03-25 14:29] VITALS: O2SAT 96
[2021-03-25 15:05] VITALS: BP 105/71
== END 2021-03-25 16:20 | disposition home or self-care (01) ==
LOC: CCL 06:35
DX: I21.4 Non-ST elevation (NSTEMI) myocardial infarction (principal); I25.10 Atherosclerotic heart disease of native coronary artery without angina pectoris; I10 Essential (primary) hypertension; E78.5 Hyperlipidemia, unspecified; Z95.5 Presence of coronary angioplasty implant and graft; Z20.822 Contact with and (suspected) exposure to COVID-19
CPT/HCPCS: 36415; 85610; U0003; C1893; C1760; C1725; C9600; J2250; J3010; J0583; J7040; J1644; 85347

== ENCOUNTER 2024-03-18 06:30 | Day surgery (SDC) | payer OTHER, BC ==
--- NOTE | 2024-03-15 14:13 | RAD REPORT ---
EXAM DESCRIPTION: Lola Stern And Mitch (2 Views)03/15/2024 2:00 pm CLINICAL HISTORY: Preop for cardiac catheterization COMPARISON: 2020 FINDINGS: Calcified granuloma right lung The lungs appear clear of acute infiltrate. The heart is mildly enlarged IMPRESSION: No acute abnormalities displayed
[2024-03-15 14:14] LABS: Anion Gap 6.6 mEq/L (5.0-15.0); Potassium 3.6 mEq/L (3.5-5.1)
[2024-03-15 14:20] LABS: Absolute Eosinophils 0.1 K/uL (0-0.5); Absolute Lymphocytes (CBC) 1.4 K/uL (0.7-4.9); Absolute Monocytes 0.5 K/uL (0.1-1.3); Basophils % 0.5 % (0-1.3); Hematocrit 37.7 % (39.6-49.0); Hemoglobin 12.4 g/dL (13.6-17.9); Lymphocytes % 27.6 % (15.3-44.8); MCH 31.6 pg (27.0-35.0); MCHC 32.9 g/dL (32.0-36.0); MPV 7.9 fL (7.6-11.3); Monocytes % 9.3 % (3.3-12.3); Neutrophils % 60.6 % (41.7-73.7); Nucleated Red Blood Cells % 0.1 % (0-0); Platelets 215 thou/uL (152-406); RBC Red Blood Cell Count 3.92 M/uL (4.33-5.43); Red Cell Distribution Width 13.7 % (12.1-15.2)
[2024-03-15 21:31] LABS: PT Prothrombin Time 10.9 SECONDS (9.5-12.5); Protime INR 0.9
--- NOTE | 2024-03-17 16:49 | EKG ---
Test Date: 2024-03-15 Test Time: 13:38:46 Bass Fisher: ANJU MEASUREMENT RESULTS: Intervals: Rate: 61 TN: 148 QRSD: 100 QT: 400 QTc: 402 [place]: P: 74 TN: 148 QRS: -61 T: -4 INTERPRETIVE STATEMENTS: Normal sinus rhythm Incomplete right bundle branch block Left anterior fascicular block Nonspecific ST and T wave abnormality Abnormal ECG Compared to ECG 03/13/2021 10:35:46 Incomplete right bundle-branch block now present Left anterior fascicular block now present ST (T wave) deviation now present Ventricular premature complex(es) no longer present Right bundle-branch block no longer present Myocardial infarct finding no longer present Electronically Signed On 03-17-24 16:43:00 CDT by Brandon Rowe
[2024-03-18] MEDS ORDERED: NA CHLORIDE 0.9% 500 ML ONE (06:35)
[2024-03-18] MEDS ORDERED: HEPA 1000U/500MLS 2,000 UNIT/1,000 ML BAG IV ONE (06:40)
[2024-03-18] MEDS ORDERED: VERAPAMIL HCL 10 MG/4 ML VIAL IV ONE (06:41)
[2024-03-18] MEDS ORDERED: MIDAZOLAM HCL 2 MG/2 ML INJ ONE (06:41)
[2024-03-18] MEDS ORDERED: FENTANYL CITR 100 MCG/2 ML ONE (06:41)
[2024-03-18] MEDS ORDERED: LIDOCAINE 1% 20 ML MDV ONE (06:41)
[2024-03-18] MEDS ORDERED: ATROPINE SULF 1 MG/10 ML SYR IV ONE (06:42)
[2024-03-18] MEDS ORDERED: HEPARIN 10,000 UNIT/10 ML VIAL IV ONE (06:42)
[2024-03-18] MEDS ORDERED: HEPARIN 5000 UNIT/ML 1 ML VIAL ONE (06:42)
[2024-03-18] MEDS ORDERED: REGADENOSON 0.4 MG/5 ML SYR IV ONE (07:40)
[2024-03-18] MEDS ORDERED: CLOPIDOGREL 75 MG TABLET ONE (08:15)
[2024-03-18] MEDS ORDERED: ASPIRIN 325 MG TAB ONE (08:15)
[2024-03-18 09:12] VITALS: O2SAT 100
[2024-03-18 09:47] VITALS: TEMP 97.2
[2024-03-18 11:53] VITALS: BP 132/79
--- NOTE | 2024-03-18 23:39 | OP ---
Date of Procedure: 03/18/2024 Surgeon: Simone Carty Procedures Performed: 1.Left heart catheterization. 2.Coronary angiogram. 3.Percutaneous coronary intervention of the left anterior descending with Synergy 3.5 x 32 mm drug-e luting stent. 4.Percutaneous transluminal coronary angioplasty of the diagonal. Indication For Procedure: Unstable angina, abnormal stress test. Complication: None. Estimated Blood Loss: Less than 50 cc. Sedation Time: 45 minutes. Description Of Procedure: After risks, benefits, and alternatives were explained, the patient agreed to proceed with the procedure and signed informed consent. The patient was brought to the catheteri zation lab, prepped and draped in sterile fashion. Time-out was performed. Sedation was administere d. The right radial artery access was obtained using an ultrasound-guided micropuncture technique. A 6-Japanese sheath was inserted. [place] 4.0 catheter was advanced over the J-wire to the left ventric ular cavity. EDP was obtained and pullback did not show any gradient. Same catheter was used for se lective coronary angiogram. After that, catheter was exchanged for an EBU 3.5 mm guide. Heparin was administered. ACT was therapeutic. Runthrough wires into the LAD, pre-dilated lesions with NC 3.0 mm balloon. Next, Synergy 3.5 x 32 mm drug-eluting stent was placed to across the lesion that was po stdilated with NC 4.0 mm balloon. At the end, angiogram shows the diagonal branch was jailed, so a r un-through wire was pulled back and used to cross into the diagonal and PTCA of the diagonal was done with a 2.0 mm balloon. The final angiogram shows LEONEL-3 flow. EBU guide was removed over the J-wir e and sheath was removed and TR band was applied to close the right radial access. Findings: 1.Left main is normal. 2.LAD: Proximal 67% disease. FFR is 0.78, so PCI was done with Synergy 3.5 x 32 mm drug-eluting st ent that was overlapped with old mid stents, which are patent and distal mild LI. Diagonal 1 got farhan led by stent. PTCA was done with a 2.0 mm balloon. 3.Left circ: Mild LI. OM1 stent is patent. 4.RCA: Proximal 30% disease, mid 50% to 60% disease and mild LI. Assessment: 1.Significant proximal left anterior descending disease. Positive FFR, status post percutaneous cor onary intervention with Synergy 3.5 x 32 mm drug-eluting stent. 2.Ostial diagonal disease, percutaneous transluminal coronary angioplasty done. 3.Moderate mid right coronary artery disease. Medical management, possible FFR in the future if asy mptomatic. Plan: 1.Continue aspirin 81 mg daily for life. Continue Plavix 75 mg daily for 12 months. 2.Continue medical treatment for CAD. JUAN M/ORI Voice ID: [id number] Report ID: [id number]
== END 2024-03-18 11:40 | disposition home or self-care (01) ==
LOC: CCL 06:30
PROVIDERS: ATTEND Internal Medicine
DX: I25.10 Atherosclerotic heart disease of native coronary artery without angina pectoris (principal); I10 Essential (primary) hypertension; E78.5 Hyperlipidemia, unspecified; I49.3 Ventricular premature depolarization; Z95.5 Presence of coronary angioplasty implant and graft; Z79.02 Long term (current) use of antithrombotics/antiplatelets; Z79.82 Long term (current) use of aspirin; Z79.899 Other long term (current) drug therapy
CPT/HCPCS: 93005; 85025; 80048; 36415; 85610; 85347 ×2; 85730; 71046; 92921; 93458; 76937; 93571; C1893; Q9967; C1725; C9600; J1644; J2785; J2001; J2250; J3010; J7040; C1769; 99152; 99153; J0461